=== PATIENT | male | born 2005 | race Caucasian/White ===

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

== ENCOUNTER 2024-01-27 14:51 | Outpatient (CLI) | payer MEDICAID, SELFPAY ==
--- NOTE | 2024-01-27 13:30 | DI.RAD_ITS ---
Exam(s) XR ANKLE RT COMPLETE EXAM: XR ANKLE RT COMPLETE CLINICAL HISTORY: F/U FRACTURE. TECHNIQUE: 2D digital imaging was performed. COMPARISON: CR XR ANKLE RT COMPLETE from 12/30/2023 FINDINGS: 3 views The oblique and transverse fracture lines in the distal fibula are still evident. No further displac ement. No widening of the ankle mortise evident on these nonstress views. No additional fractures e vident. Talar dome unremarkable. Base of the 5th metatarsal unremarkable. IMPRESSION: Stable appearance of fracture lines in the distal fibula. No obvious callus formation. No further d isplacement. DATA REPOSITORY: RADIATION DOSE DELIVERED:
== END 2024-01-27 14:52 | disposition home or self-care (01) ==
LOC: DIORS 14:51
PROVIDERS: PCP Pediatrics; Visit Provider Student in an Organized Health Care Education/Training Program
DX: S82.891A Other fracture of right lower leg, initial encounter for closed fracture (principal)
CPT/HCPCS: 73610

== ENCOUNTER 2024-02-10 14:43 | Emergency (ER) | payer MEDICAID, SELFPAY ==
[2024-02-10] VITALS (11 sets, daily range): BP systolic 120–126; BP diastolic 58–59; PULSE 50–62; RESP 7–28; TEMP 36.3–37; O2SAT 97–100
--- NOTE | 2024-02-10 15:00 | DI.CT_ITS ---
Exam(s) CT ABDOMEN PELVIS W EXAM: CT ABDOMEN PELVIS W CLINICAL HISTORY: LLQ pain, Left inguinal hernia repair October. TECHNIQUE: Imaging Protocol: Axial computed tomography images with coronal and sagittal reformatted images were created and reviewed CONTRAST MATERIAL: Intravenous: Omnipaque 350 Contrast volume:100 ml Oral: no COMPARISON: No exams were available for comparison FINDINGS: ABDOMEN and PELVIS: Lung Bases: No acute findings. Liver: Normal density. No suspicious mass. Gallbladder and biliary tract: No radiodense calculus. No biliary dilation. Pancreas: Normal density. No abnormal calcifications or inflammatory process. No evidence of mass. Spleen: Normal. Kidneys: Normal size, contour and axis. No radiodense stones. No obstructive uropathy. No suspicious masses seen. Adrenal glands: No masses seen. Vasculature: Abdominal aorta non-dilated. Soft tissues: Mild stranding in the subcutaneous fat of the left inguinal region likely related to re cent surgery. No evidence of recurrence hernia. Bladder: Distended. No gross wall thickening. No calculi.No focal mass. Bowel: No obstruction. No bowel wall thickening. Appendix normal. Peritoneal cavity: No ascites. No focal collection. No mesenteric inflammatory response. Bones: Unremarkable for age. Reproductive organs: Unremarkable. Lymph nodes: No pathologically enlarged lymph nodes. IMPRESSION:: No acute abnormality in the abdomen or pelvis. No evidence of recurrence inguinal hernia. RADIATION DOSE DELIVERED: Total DLP DATA REPOSITORY: All CT scans at this facility are submitted to the National Radiology Data Registry (NRDR) Dose Index Registry (DIR) with the [employer] [place] [employer] (ACR). RADIATION OPTIMIZATION: All CT scans at this facility use at least one of these dose optimization te chniques: automated exposure control; mA and/or kV adjustment per patient size (includes targeted exa ms where dose is matched to clinical indication); or iterative reconstruction.
--- NOTE | 2024-02-10 15:10 | ED.GENADUL_ITS ---
Discharge Plan Discharge Details Chief Complaint: Male Reproductive Problem Primary Care Provider: Rosalio Pool ED Provider: Clari De Guzman Home Meds and New Rx's Prescriptions: No Action melatonin 3 mg tablet 3 mg PO HS PRN (Reason: sleep) Qty: 30 2RF fluoxetine 10 mg capsule 10 mg PO DAILY Qty: 30 2RF lisdexamfetamine [Vyvanse] 30 mg capsule 30 mg PO DAILY HPI General Mode of arrival: ambulatory . Date/Time Provider Initiated Documentation: 02/10/24 14:49 . Limitations to Documentation: no limitations . Information obtained by: patient, RN notes reviewed and old records reviewed . HPI Narrative: 18-year-old male presents to the ER with a chief complaint of left lower quadrant abdominal and groin pain after lifting a countertop approximately 4 hours prior to arrival. He reports that he felt a sharp pain in his had some tenderness since then. He did have a left inguinal hernia repair with mesh placement in October of this year. He denies any problems urinating after the injury denies any fever chills nausea vomiting or diarrhea. He did not take any medications prior to arrival. He does have a healed surgical incision noted, no significant masses palpated or visualized. Other past medical history includes ADHD and depression. Related Data Home Medications ?Medication ?Instructions ?Recorded ?Confirmed melatonin 3 mg tablet 3 mg PO HS PRN sleep #30 tabs 01/04/21 02/10/24 fluoxetine 10 mg capsule 10 mg PO DAILY #30 caps 02/05/23 02/10/24 lisdexamfetamine 30 mg capsule 30 mg PO DAILY 08/19/23 02/10/24 (Vyvanse) Previous Rx's ?Medication ?Instructions ?Recorded melatonin 3 mg tablet 3 mg PO HS PRN sleep #30 tabs 01/04/21 fluoxetine 10 mg capsule 10 mg PO DAILY #30 caps 02/05/23 Allergies Allergy/AdvReac Type Severity Reaction Status Date / Time kiwi Allergy Mild Tongue Verified 02/10/24 14:56 Tingling General Stated Complaint: Male Reproductive Problem NAHUM: 3 Review of Systems All systems reviewed & are unremarkable except as noted in HPI and below Gastrointestinal Gastrointestinal: Reports as per HPI and Reports abdominal pain Genitourinary Genitourinary: Reports as per HPI, Denies penile discharge and Denies scrotal swelling Exam Narrative Exam Narrative: Constitutional: Alert and oriented x3. Appears stated age. Normal body habitus. Head: Normocephalic, no trauma. Eyes: Pupils PERRL, Red reflex noted, EOM's intact. Eyelids symmetrical without lesions, discharge, or swelling. Chest: RRR, Normal S1, S2, distal pulses intact. Resp: Lungs clear to auscultation bilaterally, no wheezes, rales, or rhonchi. Abdomen: Soft, non-distended, Normoactive bowel sounds all 4 quads. Healed horizontal surgical incision noted to the left groin, no visualized masses, no obvious large hernias palpated. Musculoskeletal: Normal gait, Moves all 4 extremities without difficulty. Skin: No suspicious rashes or lesions. Capillary refill less than 2 sec. Neurologic: Cranial nerves II-XII intact. Alert and oriented x 3. Motor: No deficits noted. Sensory: Intact bilaterally all 4 extremities. Hematologic/Lymphatic: No ecchymosis, no lymphadenopathy. Course Vital Signs Vital signs: Vital Signs Temperature 37.0 C 02/10/24 14:53 Pulse 51 L 02/10/24 14:53 Respiratory Rate 16 02/10/24 14:53 Blood Pressure 126/58 L 02/10/24 14:53 Pulse Oximetry 99 02/10/24 14:53 Temperature 37.0 C 02/10/24 14:53 Temperature Source Temporal Artery Scan 02/10/24 14:53 Pulse 51 L 02/10/24 14:53 Respiratory Rate 16 02/10/24 14:53 Blood Pressure 126/58 L 02/10/24 14:53 Pulse Oximetry 99 02/10/24 14:53 Pain Level 2 02/10/24 14:53 Medical Decision Making 18-year-old male presents to the ER with a chief complaint of left lower quadrant abdominal and groin pain after lifting a countertop approximately 4 hours prior to arrival. He reports that he felt a sharp pain in his had some tenderness since then. He did have a left inguinal hernia repair with mesh placement in October of this year. He denies any problems urinating after the injury denies any fever chills nausea vomiting or diarrhea. He did not take any medications prior to arrival. He does have a healed surgical incision noted, no significant masses palpated or visualized. Other past medical history includes ADHD and depression. CT abdomen pelvis with contrast ordered, CBC CMP urinalysis. Care is to be handed off to oncoming provider pending CT abdomen pelvis and labs. This text was generated using [employer] dictation system, please disregard any oddities of phrase or misspellings. Medical Records Medical records reviewed: Yes I reviewed the patient's medical records. Quality:[facility] Health Related Social Needs: No Data to Display PFSH All Active Problems Closed right ankle fracture (Acute 12/20/23) Left inguinal hernia (Acute) Non-recurrent unilateral inguinal hernia without obstruction or gangrene (Acute) Precordial catch syndrome (Acute) Depression with anxiety (Acute) Routine child health exam (Acute 11/20/12) Learning difficulty (Acute 11/20/12) Attention deficit hyperactivity disorder, combined type (Acute 11/20/12) Medical History Depression Normal weight, pediatric, BMI 5th to 84th percentile for age (12/28/14) ADHD (attention deficit hyperactivity disorder) Vision problem WEARS GLASSES Surgical History Hx of inguinal hernia repair (~10/2023) left side Circumcision Family History Mother TMJ arthralgia Lumbar herniated disc Father Healthy adult on routine physical examination Grandfather Essential hypertension Hyperlipidemia Social History Smoking/Tobacco Use Status: Current every day Tobacco Type: cigarettes and e-cigarettes Smoking risk assessment performed?: Yes Alcohol Intake: never Drug use: Daily Substance use type: marijuana Housing: apartment Education Level: high school Details: Senior at Pets and animals: Yes (Dog at dad's house) Pets and animals: dog(s) Current gender identity: male What type of physical activity do you participate in: other Details: Baseball Seatbelt use: always Do you feel safe at home: Yes Do you feel safe in your relationship?: Yes Sign Out Sign Out Data: Sign Out Comment: 18 year old Left Inguinal groin pain after heavy lifting today. Hx of Inguinal hernia repair with Mesh in October 2023. Pending CT abd/pelvis w. Last updated by Clari De Guzman NP at 02/10/24 15:40
[2024-02-10 15:31] LABS: Abs Immature Grans 0.02 10^3/uL (0.0-0.06); Absolute Basophil Count 0.02 10^3/uL (0.0-0.2); Absolute Eosinophil Count 0.05 10^3/uL (0.0-0.7); Absolute Lymphocyte Count 1.59 10^3/uL (1.2-3.4); Absolute Monocyte Count 0.63 10^3/uL (0.1-0.8); Absolute Neutrophil Count 4.04 10^3/uL (1.2-6.7); Basophils % 0.3 %; Eosinophils % 0.8 %; HCT 39.3 % (40.0-50.0); HGB 13.7 g/dL (13.5-17.5); Immature Grans % 0.3 %; MCH 31.3 pg (27.0-33.0); MCHC 34.9 % (32.0-36.0); MCV 90 fL (80-95); Monocytes % 9.9 %; Neutrophils % 63.7 %; RBC 4.38 10^6/uL (4.36-5.78); RDW-SD 39.5 fL; WBC 6.35 10^3/uL (4.4-10.8)
[2024-02-10 15:51] LABS: Platelet Count 150 10^3/uL (130-400)
[2024-02-10 15:54] LABS: ALT 26 U/L (16-63); AST 20 U/L (15-37); Albumin 4.5 g/dL (3.4-5.0); Alkaline Phosphatase 94 U/L (46-116); Anion Gap 4.7 mmol/L (3-11); BUN 9 mg/dL (7-18); Bilirubin, Total 1.59 mg/dL (0.2-1.0); CO2 33.3 mmol/L (21.0-32.0); CREATININE 0.8 mg/dL (0.70-1.30); Calcium 8.9 mg/dL (8.5-10.1); Chloride 102 mmol/L (98-107); Estimated GFR 130.74 (mL/min/1.73m2); Glucose 87 mg/dL (74-106); Potassium 3.6 mmol/L (3.5-5.1); Sodium 140 mmol/L (136-145); Total Protein 7.3 g/dL (6.4-8.2)
[2024-02-10] MEDS: Normal Saline - Diluent 50 ML VIAL IJ (15:55)
[2024-02-10] MEDS: Omnipaque 350 MG/ML 100 ML BTL IJ (15:57)
[2024-02-10 16:07] LABS: Bilirubin Negative (Negative); Blood Negative (Negative); Clarity Clear (Clear); Glucose Negative (Negative); Ketones Negative (Negative); Leukocyte Esterase Negative (Negative); Nitrite Negative (Negative); Specific Gravity 1.015 (1.005-1.025); Urobilinogen 0.2 mg/dL (Up to 0.2); pH 7.5 (5-8)
== END 2024-02-10 16:52 | disposition home or self-care (01) ==
PROVIDERS: Registered Nurse Emergency; Emergency Provider Physician Assistant; PCP Pediatrics
DX: R10.32 Left lower quadrant pain (principal); G89.18 Other acute postprocedural pain; Z87.19 Personal history of other diseases of the digestive system; Z98.890 Other specified postprocedural states; X50.0XXA Overexertion from strenuous movement or load, initial encounter
CPT/HCPCS: 36415; 80053; 99285; 74177; 81003; 85025; 99282; J3490

== ENCOUNTER 2024-03-17 10:00 | Emergency (ER) | payer MEDICAID, SELFPAY ==
[2024-03-17 10:01] VITALS: BP 117/69; PULSE 56; RESP 10; TEMP 36.2; O2SAT 97
--- NOTE | 2024-03-17 10:14 | ED.GENADUL_ITS ---
Discharge Plan Disposition Patient Disposition: Home Condition: Stable Discharge Details Clinical Impression: Acute epigastric pain Primary Care Provider: Rosalio Pool ED Provider: Jordan Webster Home Meds and New Rx's Prescriptions: New omeprazole 20 mg capsule,delayed release(DR/EC) 20 mg PO BID Qty: 60 0RF Continued melatonin 3 mg tablet 3 mg PO HS PRN (Reason: sleep) Qty: 30 2RF Discharge Instructions Additional Instructions: Follow-up with your primary care provider within 1 to 2 weeks especially if symptoms continue You can take [id number] Tums or Mylanta as needed, follow dosing instructions on packaging If you feel more ill, have severe worsening pain or persistent vomiting or fevers return to the emergency department for reevaluation HPI General Mode of arrival: ambulatory . Date/Time Provider Initiated Documentation: 03/17/24 10:06 . Limitations to Documentation: no limitations . Information obtained by: patient . History of Present Illness 18 year old M presents to the emergency department with the chief complaint of Epigastric discomfort, described as moderate, Quality is described as burning, and is localized to the abdomen. Patient reports no radiation. Patient started experiencing this day(s) (3) and it has been intermittent. Eating worsens symptoms . Patient notes denies chest pain, fever/chills and shortness of breath. Patient did receive the following treatments prior to arrival, none Related Data Home Medications ?Medication ?Instructions ?Recorded ?Confirmed melatonin 3 mg tablet 3 mg PO HS PRN sleep #30 tabs 01/04/21 03/17/24 omeprazole 20 mg capsule,delayed 20 mg PO BID #60 caps 03/17/24 release Previous Rx's ?Medication ?Instructions ?Recorded melatonin 3 mg tablet 3 mg PO HS PRN sleep #30 tabs 01/04/21 omeprazole 20 mg capsule,delayed 20 mg PO BID #60 caps 03/17/24 release Allergies Allergy/AdvReac Type Severity Reaction Status Date / Time kiwi Allergy Mild Tongue Verified 03/17/24 10:04 Tingling General Stated Complaint: Abd Prob NAHUM: 3 Review of Systems All systems reviewed & are unremarkable except as noted in HPI and below Constitutional Constitutional: Denies chills, Denies fever(s) and Denies weakness Cardiovascular Cardiovascular: Denies chest pain and Denies dyspnea Respiratory Respiratory: Denies cough and Denies dyspnea Gastrointestinal Gastrointestinal: Reports abdominal pain, Reports nausea and Denies vomiting Musculoskeletal Musculoskeletal: Denies joint swelling Neurologic Neurologic: Denies weakness Exam Const General: no acute distress Orientation: alert HENUT Head: normal to inspection Ears: external ears normal General nose exam: external nose normal Mouth: moist mucous membranes Eyes General: appearance normal, both eyes and all related structures Neck Neck: normal visual inspection Resp Effort & Inspection: normal respiratory effort and able to speak in complete sentences Cardio Rate: regular rate GI Palpation: soft, not firm, no guarding and tender Skin General skin exam: no rashes or lesions noted Neuro General: patient alert and patient oriented x3 Extrem General: normal to inspection Psych Mental Status: mental status grossly normal Course Vital Signs Vital signs: Vital Signs Temperature 36.2 C L 03/17/24 10:01 Pulse 56 L 03/17/24 10:01 Respiratory Rate 10 L 03/17/24 10:01 Blood Pressure 117/69 03/17/24 10:01 Pulse Oximetry 97 03/17/24 10:01 Temperature 36.2 C L 03/17/24 10:01 Pulse 56 L 03/17/24 10:01 Respiratory Rate 10 L 03/17/24 10:01 Respiratory Effort Normal 03/17/24 10:05 Blood Pressure 117/69 03/17/24 10:01 Pulse Oximetry 97 03/17/24 10:01 Oxygen Delivery Method Room Air 03/17/24 10:01 Oxygen Flow Rate 0 03/17/24 10:01 Pain Level 5 03/17/24 10:01 Comment 7/10 at its worse when he eats and wakes up 03/17/24 10:01 Medical Decision Making 89-year-old male with history of ADHD otherwise no significant chronic medical problems comes in with several days of epigastric burning sensation especially when he eats. He denies any vomiting but has had nausea. He had similar symptoms a month ago and was seen here and had negative CT. He appears well on exam. His abdomen is soft and nondistended. His pain is localized to epigastric area has no right upper quadrant tenderness or lower abdominal tenderness. He has no Nation sign. Suspect gastritis, will check a CBC CMP lipase and bilirubin and also treat his symptoms with Mylanta and Zofran and reassess. Given he had a CT a month ago do not feel he requires emergent imaging at this time. Labs show elevated bilirubin which she has had in the past and I suspect is from [place] syndrome. Otherwise unremarkable labs. He is feeling improved has minimal epigastric tenderness. He has no findings on history or exam to suggest entities such as cholangitis. Given lack of right upper quadrant abdominal tenderness and LFTs otherwise are normal do not feel ultrasound or imaging with CT indicated. Will have him start a daily PPI and have him follow-up with his PCP and return precautions given Differential Diagnosis Differential Diagnosis: gastritis, pancreatitis Medical Records Medical records reviewed: Yes I reviewed the patient's medical records. Lab Data Lab results reviewed: Yes I reviewed the patient's lab results. Quality:[facility] Health Related Social Needs: No Data to Display PFSH All Active Problems (Updated 03/17/24 @ 11:22 by Jordan Webster MD) Acute epigastric pain (Acute) Closed right ankle fracture (Acute 12/20/23) Left inguinal hernia (Acute) Non-recurrent unilateral inguinal hernia without obstruction or gangrene (Acute) Precordial catch syndrome (Acute) Depression with anxiety (Acute) Routine child health exam (Acute 11/20/12) Learning difficulty (Acute 11/20/12) Attention deficit hyperactivity disorder, combined type (Acute 11/20/12) Medical History Depression Normal weight, pediatric, BMI 5th to 84th percentile for age (12/28/14) ADHD (attention deficit hyperactivity disorder) Vision problem WEARS GLASSES Surgical History Hx of inguinal hernia repair (~10/2023) left side Circumcision Family History Mother TMJ arthralgia Lumbar herniated disc Father Healthy adult on routine physical examination Grandfather Essential hypertension Hyperlipidemia Social History Smoking/Tobacco Use Status: Current every day Tobacco Type: cigarettes and e- cigarettes Smoking risk assessment performed?: Yes Alcohol Intake: never Drug use: Daily Substance use type: marijuana Housing: apartment Education Level: high school Details: Senior at Pets and animals: Yes (Dog at dad's house) Pets and animals: dog(s) Current gender identity: male What type of physical activity do you participate in: other Details: Baseball Seatbelt use: always Do you feel safe at home: Yes Do you feel safe in your relationship?: Yes
[2024-03-17] MEDS: Mylanta Suspension 30 ML CUP PO (10:27)
[2024-03-17] MEDS: Ondansetron O.D.T. 4 MG TABEF PO (10:27)
[2024-03-17 10:34] LABS: Abs Immature Grans 0.01 10^3/uL (0.0-0.06); Absolute Basophil Count 0.02 10^3/uL (0.0-0.2); Absolute Eosinophil Count 0.05 10^3/uL (0.0-0.7); Absolute Lymphocyte Count 1.49 10^3/uL (1.2-3.4); Absolute Monocyte Count 0.47 10^3/uL (0.1-0.8); Absolute Neutrophil Count 2.67 10^3/uL (1.2-6.7); Basophils % 0.4 %; Eosinophils % 1.1 %; HCT 43.7 % (40.0-50.0); HGB 14.9 g/dL (13.5-17.5); Immature Grans % 0.2 %; Lymphocytes % 31.6 %; MCH 30.7 pg (27.0-33.0); MCHC 34.1 % (32.0-36.0); MCV 90 fL (80-95); MPV 13.8 fL (8.0-11.0); Neutrophils % 56.7 %; Platelet Count 151 10^3/uL (130-400); RBC 4.85 10^6/uL (4.36-5.78); RDW 12.1 % (11.8-14.1); WBC 4.71 10^3/uL (4.4-10.8)
[2024-03-17 10:52] LABS: ALT 40 U/L (16-63); AST 32 U/L (15-37); Alkaline Phosphatase 95 U/L (46-116); BUN 15 mg/dL (7-18); Bilirubin, Direct 0.4 mg/dL (0.0-0.2); Bilirubin, Total 2.93 mg/dL (0.2-1.0); CREATININE 0.9 mg/dL (0.70-1.30); Calcium 9.8 mg/dL (8.5-10.1); Chloride 100 mmol/L (98-107); Estimated GFR 126.17 (mL/min/1.73m2); Glucose 76 mg/dL (74-106); Lipase 30 U/L (16-77); Magnesium 2.1 mg/dL (1.8-2.4); Potassium 3.6 mmol/L (3.5-5.1); Sodium 138 mmol/L (136-145); Total Protein 8.1 g/dL (6.4-8.2)
[2024-03-17 11:14] VITALS: BP 109/56; PULSE 51; RESP 16; O2SAT 97
== END 2024-03-17 11:31 | disposition home or self-care (01) ==
PROVIDERS: Emergency Provider Emergency Medicine; PCP Pediatrics
DX: R10.13 Epigastric pain (principal); R11.2 Nausea with vomiting, unspecified; F17.210 Nicotine dependence, cigarettes, uncomplicated; F17.290 Nicotine dependence, other tobacco product, uncomplicated
CPT/HCPCS: 36415; 80053; 83690; 99283; 82248; 83735; 85025

== ENCOUNTER 2024-06-25 17:20 | Emergency (ER) | payer MEDICAID, SELFPAY ==
[2024-06-25 17:21] VITALS: BP 109/78; PULSE 90; RESP 14; TEMP 36.6; O2SAT 97
--- NOTE | 2024-06-25 17:37 | ED.GENADUL_ITS ---
Discharge Plan Disposition Patient Disposition: Home Condition: Stable Discharge Details Clinical Impression: Gastritis Primary Care Provider: Rosalio Pool ED Provider: Clari De Guzman Home Meds and New Rx's Prescriptions: New Ondansetron Odt, 3 Tabs/Btl [Zofran Odt, 3 Tabs/Btl] 4 mg PO DISPENSE PRN3 Days 0RF Continued melatonin 3 mg tablet 3 mg PO HS PRN (Reason: sleep) Qty: 30 2RF omeprazole 20 mg capsule,delayed release(DR/EC) 20 mg PO BID Qty: 60 0RF Discharge Instructions Instructions: Food poisoning Additional Instructions: At this time your labs are within normal limits. Take the nausea medication 20 to 30 minutes before eating or drinking anything. Increase oral fluids. Stay away from anything fried fatty spicy or dairy. Drink katie rui and a bland diet. Follow up with primary care provider in 3-5 days. Return to ED sooner if any worsening or concerns. Referrals: Rosalio Pool MD [Primary Care Provider] - 5 days Discharge Data Discharge Date/Time-TO BE ENTERED AT DEPARTURE: 06/25/24 18:33 HPI General Mode of arrival: ambulatory . Date/Time Provider Initiated Documentation: 06/25/24 17:22 . Limitations to Documentation: no limitations . Information obtained by: patient, RN notes reviewed and old records reviewed . HPI Narrative: 19 year old male presents to the ER with cc of LLQ abdominal pain and nausea after eating half a bag of moldy, bad jerky yesterday. He reports he has not had a bowel movement since then, denies any vomiting or diarrhea but he is nauseous. Denies any fever or chills or any other associated symptoms. He describes pain as crampy and spasmodic. Related Data Home Medications ?Medication ?Instructions ?Recorded ?Confirmed melatonin 3 mg tablet 3 mg PO HS PRN sleep #30 tabs 01/04/21 06/25/24 omeprazole 20 mg capsule,delayed 20 mg PO BID #60 caps 03/17/24 06/25/24 release Ondansetron ODT, 3 tabs/btl 4 mg PO DISPENSE PRN 3 days 06/25/24 [Zofran ODT, 3 tabs/btl] Previous Rx's ?Medication ?Instructions ?Recorded melatonin 3 mg tablet 3 mg PO HS PRN sleep #30 tabs 07/01/21 omeprazole 20 mg capsule,delayed 20 mg PO BID #60 caps 03/17/24 release Ondansetron ODT, 3 tabs/btl 4 mg PO DISPENSE PRN 3 days 06/25/24 [Zofran ODT, 3 tabs/btl] Allergies Allergy/AdvReac Type Severity Reaction Status Date / Time kiwi Allergy Mild Tongue Verified 06/25/24 17:27 Tingling General Stated Complaint: Abd Prob NAHUM: 3 Review of Systems All systems reviewed & are unremarkable except as noted in HPI and below Gastrointestinal Gastrointestinal: Reports abdominal pain, Reports constipation, Reports cramping and Reports nausea Exam Narrative Exam Narrative: Constitutional: Alert and oriented x3. Appears stated age. Normal body habitus. Head: Normocephalic, no trauma. Eyes: Pupils PERRL, Red reflex noted, EOM's intact. Eyelids symmetrical without lesions, discharge, or swelling. ENT: Bilateral TM's WNL, External ear normal to inspection, no mastoid TTP, swelling, or erythema, Nasal turbinates WNL, no nasal discharge. Normal d entition, Posterior pharynx WNL, no exudate. Chest: RRR, Normal S1, S2, distal pulses intact. Resp: Lungs clear to auscultation bilaterally, no wheezes, rales, or rhonchi. Abdomen: Soft, non-distended, Normoactive bowel sounds all 4 quads. Musculoskeletal: Normal gait, Moves all 4 extremities without difficulty. Skin: No suspicious rashes or lesions. Capillary refill less than 2 sec. Neurologic: Cranial nerves II-XII intact. Alert and oriented x 3. Motor: No deficits noted. Sensory: Intact bilaterally all 4 extremities. Hematologic/Lymphatic: No ecchymosis, no lymphadenopathy. Course Vital Signs Vital signs: Vital Signs Temperature 36.6 C 06/25/24 17:21 Pulse 90 06/25/24 17:21 Respiratory Rate 14 06/25/24 17:21 Blood Pressure 109/78 06/25/24 17:21 Pulse Oximetry 97 06/25/24 17:21 Temperature 36.6 C 06/25/24 17:21 Temperature Source Oral 06/25/24 17:21 Pulse 90 06/25/24 17:21 Respiratory Rate 14 06/25/24 17:21 Blood Pressure 109/78 06/25/24 17:21 Blood Pressure Position Sitting 06/25/24 17:21 Pulse Oximetry 97 06/25/24 17:21 Oxygen Delivery Method Room Air 06/25/24 17:21 Oxygen Flow Rate 0 06/25/24 17:21 Pain Level 2 06/25/24 17:21 Medical Decision Making 19 year old male presents to the ER with cc of LLQ abdominal pain and nausea after eating half a bag of moldy, bad jerky yesterday. He reports he has not had a bowel movement since then, denies any vomiting or diarrhea but he is nauseous. Denies any fever or chills or any other associated symptoms. He describes pain as crampy and spasmodic. Workup ordered including CBC CMP, lipase, Zofran ODT p.o., Pepcid 20 mg IV and Mylanta. Labs are largely unremarkable, will send home with Felipe to go and instruct on bland diet and increasing oral fluids. This text was generated using [employer] dictation system, please disregard any oddities of phrase or misspellings. Lab Data Lab results reviewed: Yes I reviewed the patient's lab results. Labs: Laboratory Tests Range/Units 06/25/24 17:44 WBC (4.4-10.8) 10^3/uL 6.76 RBC (4.36-5.78) 10^6/uL 5.03 Hgb (13.5-17.5) g/dL 15.7 Hct (40.0-50.0) % 45.2 MCV (80-95) fL 90 MCH (27.0-33.0) pg 31.2 MCHC (32.0-36.0) % 34.7 RDW (11.8-14.1) % 12.2 Plt Count (130-400) 10^3/uL 147 MPV (8.0-11.0) fL 11.3 H Immature Gran % % 0.3 Neutrophils % % 66.5 Lymphocytes % % 25.4 Monocytes % % 7.1 Eosinophils % % 0.4 Basophils % % 0.3 Nucleated RBC % (0.0-0.3) % 0.0 Absolute Neutrophils (1.2-6.7) 10^3/uL 4.49 Absolute Lymphocytes (1.2-3.4) 10^3/uL 1.72 Absolute Monocytes (0.1-0.8) 10^3/uL 0.48 Absolute Eosinophils (0.0-0.7) 10^3/uL 0.03 Absolute Basophils (0.0-0.2) 10^3/uL 0.02 Sodium (136-145) mmol/L 140 Potassium (3.5-5.1) mmol/L 3.9 Chloride (98-107) mmol/L 102 Carbon Dioxide (21.0-32.0) mmol/L 30.0 Anion Gap (3-11) mmol/L 8.0 BUN (7-18) mg/dL 17 Creatinine (0.70-1.30) mg/dL 1.1 Est GFR (CKD-EPI 2020) (mL/min/1.73m2) 98.56 Glucose (74-106) mg/dL 85 Calcium (8.5-10.1) mg/dL 9.1 Total Bilirubin (0.2-1.0) mg/dL 3.50 H AST (15-37) U/L 18 ALT (16-63) U/L 20 Alkaline Phosphatase (46-116) U/L 108 Total Protein (6.4-8.2) g/dL 8.1 Albumin (3.4-5.0) g/dL 5.0 Lipase (<78) U/L 20 Quality:SDOH Health Related Social Needs: No Data to Display PFSH All Active Problems (Updated 06/25/24 @ 18:17 by Clari De Guzman NP) Gastritis (Acute) Closed right ankle fracture (Acute 12/20/23) Left inguinal hernia (Acute) Non-recurrent unilateral inguinal hernia without obstruction or gangrene (Acute) Precordial catch syndrome (Acute) Depression with anxiety (Acute) Routine child health exam (Acute 11/20/12) Learning difficulty (Acute 11/20/12) Attention deficit hyperactivity disorder, combined type (Acute 11/20/12) Medical History Depression Normal weight, pediatric, BMI 5th to 84th percentile for age (12/28/14) ADHD (attention deficit hyperactivity disorder) Vision problem WEARS GLASSES Surgical History Hx of inguinal hernia repair (~10/2023) left side Circumcision Family History Mother TMJ arthralgia Lumbar herniated disc Father Healthy adult on routine physical examination Grandfather Essential hypertension Hyperlipidemia Social History Smoking/Tobacco Use Status: Current every day Tobacco Type: cigarettes and e- cigarettes Smoking risk assessment performed?: Yes Alcohol Intake: never Drug use: Daily Substance use type: marijuana Housing: apartment Education Level: high school Details: Senior at Pets and animals: Yes (Dog at dad's house) Pets and animals: dog(s) Current gender identity: male What type of physical activity do you participate in: other Details: Baseball Seatbelt use: always Do you feel safe at home: Yes Do you feel safe in your relationship?: Yes
[2024-06-25 17:51] LABS: Abs Immature Grans 0.02 10^3/uL (0.0-0.06); Absolute Basophil Count 0.02 10^3/uL (0.0-0.2); Absolute Eosinophil Count 0.03 10^3/uL (0.0-0.7); Absolute Lymphocyte Count 1.72 10^3/uL (1.2-3.4); Absolute Monocyte Count 0.48 10^3/uL (0.1-0.8); Absolute Neutrophil Count 4.49 10^3/uL (1.2-6.7); Basophils % 0.3 %; Eosinophils % 0.4 %; HCT 45.2 % (40.0-50.0); HGB 15.7 g/dL (13.5-17.5); Immature Grans % 0.3 %; Lymphocytes % 25.4 %; MCH 31.2 pg (27.0-33.0); MCHC 34.7 % (32.0-36.0); MCV 90 fL (80-95); MPV 11.3 fL (8.0-11.0); Monocytes % 7.1 %; Neutrophils % 66.5 %; Platelet Count 147 10^3/uL (130-400); RBC 5.03 10^6/uL (4.36-5.78); RDW 12.2 % (11.8-14.1); RDW-SD 40.2 fL; WBC 6.76 10^3/uL (4.4-10.8)
[2024-06-25] MEDS: Ondansetron O.D.T. 4 MG TABEF PO (17:54)
[2024-06-25] MEDS: FAMOTIDINE 20 MG in Normal Saline 100 ML 400 MG IVPB (17:54)
[2024-06-25] MEDS: Mylanta Suspension 30 ML CUP 20 ML PO (17:54)
[2024-06-25 18:05] LABS: ALT 20 U/L (16-63); AST 18 U/L (15-37); Alkaline Phosphatase 108 U/L (46-116); BUN 17 mg/dL (7-18); CREATININE 1.1 mg/dL (0.70-1.30); Calcium 9.1 mg/dL (8.5-10.1); Chloride 102 mmol/L (98-107); Estimated GFR 98.56 (mL/min/1.73m2); Glucose 85 mg/dL (74-106); Lipase 20 U/L (<78); Potassium 3.9 mmol/L (3.5-5.1); Sodium 140 mmol/L (136-145); Total Protein 8.1 g/dL (6.4-8.2)
[2024-06-25] MEDS: Ondansetron O.D.T. 4 MG TABEF, 3 TABS/BTL PO (18:28)
[2024-06-25 18:32] VITALS: BP 103/49; PULSE 82; RESP 18; O2SAT 99
== END 2024-06-25 18:33 | disposition home or self-care (01) ==
PROVIDERS: Emergency Provider Registered Nurse Emergency; PCP Pediatrics
DX: K29.70 Gastritis, unspecified, without bleeding
CPT/HCPCS: 80053; 83690; 96374; 99284; 85025

== ENCOUNTER 2024-07-30 11:55 | Emergency (ER) | payer MEDICAID, SELFPAY ==
[2024-07-30 12:06] VITALS: BP 113/50; PULSE 60; RESP 20; TEMP 36.6
--- NOTE | 2024-07-30 12:30 | DI.CT_ITS ---
Exam(s) CT PELVIC W EXAM: CT PELVIC W CLINICAL HISTORY: Left inguinal hernia pain. TECHNIQUE: Imaging Protocol: Axial computed tomography images with coronal and sagittal reformatted images were created and reviewed CONTRAST MATERIAL: Intravenous: Omnipaque 100cc Oral: None COMPARISON: No exams were available for comparison FINDINGS: PELVIS: OSSEOUS:No pelvic or hip fractures evident. No significant osseous lesions.Sacroiliac joints appear unremarkable. ANTERIOR ABDOMINAL WALL/GI:No evidence of bowel obstruction. No evidence of appendicitis.No evidence of sigmoid diverticulitis. LYMPH NODES: There is no intrapelvic nor inguinal adenopathy. REPRODUCTIVE: Prostate unremarkable. URINARY BLADDER: No calculi nor obvious masses evident INGUINAL: No inguinal hernias identified. IMPRESSION: 1. No inguinal hernia identified. No abnormal fluid collections. 2. No significant intrapelvic findings. 3. No significant osseous findings in the pelvis RADIATION DOSE DELIVERED: 196.37mGy.cm Total DLP DATA REPOSITORY: All CT scans at this facility are submitted to the National Radiology Data Registry (NRDR) Dose Index Registry (DIR) with the [employer] (ACR). RADIATION OPTIMIZATION: All CT scans at this facility use at least one of these dose optimization te chniques: automated exposure control; mA and/or kV adjustment per patient size (includes targeted exa ms where dose is matched to clinical indication); or iterative reconstruction.
--- NOTE | 2024-07-30 12:35 | W.ED.GENAD ---
Discharge Plan Disposition Patient Disposition: Home Condition: Stable Discharge Details Clinical Impression: Chronic pain of left groin Primary Care Provider: Rosalio Pool ED Provider: Clari De Guzman Home Meds and New Rx's Prescriptions: No Action melatonin 3 mg tablet 3 mg PO HS PRN (Reason: sleep) Qty: 30 2RF Discharge Instructions Instructions: Groin hernias, Abdominal Pain, Adult ED Additional Instructions: Please wear a brace or tight fitting underwear with heavy lifting. You may try to guard the area with lifting. CT at this time is within normal limits. No evidence of infection or fluid collection labs are also within normal limits. Follow up with primary care provider in 3-5 days. Return to ED sooner if any worsening or concerns. Please take Tylenol or Ibuprofen with food every 4-6 hours as needed for pain and swelling. Please call the general surgery clinic to make an appointment in their office for follow-up. Stand Alone Forms: Work Release Referrals: Melina Disla DO [OSTEOPATHIC DOCTOR] - 2 weeks HPI General Mode of arrival: ambulatory. Date/Time Provider Initiated Documentation: 07/30/24 12:17. Limitations to Documentation: no limitations. Information obtained by: patient, RN notes reviewed and old records reviewed. HPI Narrative: 19-year-old male presents to the ER with a chief complaint of left groin swelling and pain. Patient is status post left inguinal hernia repair approximately 9 months ago in October 2023. 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 Denies any scrotal swelling, problems urinating nausea vomiting diarrhea. He reports some radiation of lower abdominal pain intermittently. Abdomen is soft nontender to palpation. He does have some swelling noted in the left groin and a healed surgical incision. Past medical history includes ADHD and hernia repair. Related Data Home Medications ?Medication ?Instructions ?Recorded ?Confirmed melatonin 3 mg tablet 3 mg PO HS PRN sleep #30 tabs 01/04/21 07/30/24 Previous Rx's ?Medication ?Instructions ?Recorded melatonin 3 mg tablet 3 mg PO HS PRN sleep #30 tabs 01/04/21 Allergies Allergy/AdvReac Type Severity Reaction Status Date / Time kiwi Allergy Mild Tongue Verified 07/30/24 12:08 Tingling General Stated Complaint: Abd Prob NAHUM: 3 Review of Systems All systems reviewed & are unremarkable except as noted in HPI and below Gastrointestinal Gastrointestinal: Reports as per HPI, Reports abdominal pain, Denies diarrhea, Denies nausea and Denies vomiting Genitourinary Genitourinary: Reports as per HPI, Reports genital pain, Reports flank pain and Denies testicular pain Musculoskeletal Musculoskeletal: Reports as per HPI Exam Narrative Exam Narrative: Constitutional: Alert and oriented x3. Appears stated age. Normal body habitus. Head: Normocephalic, no trauma. Eyes: Pupils PERRL, Red reflex noted, EOM's intact. Eyelids symmetrical without lesions, discharge, or swelling. Chest: RRR, Normal S1, S2, distal pulses intact. Resp: Lungs clear to auscultation bilaterally, no wheezes, rales, or rhonchi. Abdomen: Soft, non-distended, Normoactive bowel sounds all 4 quads. Small amount of swelling noted to the left groin, tenderness to palpation, no masses palpated healing surgical incision noted. No testicle swelling redness scrotum is soft. Musculoskeletal: Normal gait, Moves all 4 extremities without difficulty. Skin: No suspicious rashes or lesions. Capillary refill less than 2 sec. Neurologic: Cranial nerves II-XII intact. Alert and oriented x 3. Motor: No deficits noted. Sensory: Intact bilaterally all 4 extremities. Hematologic/Lymphatic: No ecchymosis, no lymphadenopathy. Course Vital Signs Vital signs: Vital Signs Temperature 36.6 C 07/30/24 12:06 Pulse 60 07/30/24 12:06 Respiratory Rate 20 07/30/24 12:06 Blood Pressure 113/50 L 07/30/24 12:06 Temperature 36.6 C 07/30/24 12:06 Temperature Source Oral 07/30/24 12:06 Pulse 60 07/30/24 12:06 Respiratory Rate 20 07/30/24 12:06 Blood Pressure 113/50 L 07/30/24 12:06 Blood Pressure Position Sitting 07/30/24 12:06 Oxygen Delivery Method Room Air 07/30/24 12:06 Oxygen Flow Rate 0 07/30/24 12:06 Pain Level 3 07/30/24 12:06 Medical Decision Making 19-year-old male presents to the ER with a chief complaint of left groin swelling and pain. Patient is status post left inguinal hernia repair approximately 9 months ago in October 2023. 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 Denies any scrotal swelling, problems urinating nausea vomiting diarrhea. He reports some radiation of lower abdominal pain intermittently. Abdomen is soft nontender to palpation. He does have some swelling noted in the left groin and a healed surgical incision. Labs ordered, CT pelvis with IV contrast to evaluate hernia site. No evidence of abnormality on the CT of his pelvis. No leukocytosis, CMP within normal limits. Urinalysis is pending at this time. Expected disposition is discharge with follow-up with surgery if needed. Will discuss guarding or splinting with heavy lifting. Wearing tight fitting briefs. Discussed CT results with patient who verbalized understanding. All other questions are answered to the best my ability. Encourage follow-up with general surgery and/or PCP. This text was generated using InterStelNetation system, please disregard any oddities of phrase or misspellings. Medical Records Medical records reviewed: Yes I reviewed the patient's medical records. Imaging Data Radiologic Study: Imaging: CT Scan Radiologist's impression: CONTRAST MATERIAL: Intravenous: Omnipaque 100cc Oral: None COMPARISON: No exams were available for comparison FINDINGS: PELVIS: OSSEOUS:No pelvic or hip fractures evident. No significant osseous lesions.Sacroiliac joints appear unremarkable. ANTERIOR ABDOMINAL WALL/GI:No evidence of bowel obstruction. No evidence of appendicitis.No evidence of sigmoid diverticulitis. LYMPH NODES: There is no intrapelvic nor inguinal adenopathy. REPRODUCTIVE: Prostate unremarkable. URINARY BLADDER: No calculi nor obvious masses evident INGUINAL: No inguinal hernias identified. IMPRESSION: 1. No inguinal hernia identified. No abnormal fluid collections. 2. No significant intrapelvic findings. 3. No significant osseous findings in the pelvis Lab Data Lab results reviewed: Yes I reviewed the patient's lab results. Labs: Laboratory Tests Range/Units 07/30/24 12:50 WBC (4.4-10.8) 10^3/uL 4.58 RBC (4.36-5.78) 10^6/uL 4.69 Hgb (13.5-17.5) g/dL 14.7 Hct (40.0-50.0) % 41.9 MCV (80-95) fL 89 MCH (27.0-33.0) pg 31.3 MCHC (32.0-36.0) % 35.1 RDW (11.8-14.1) % 12.5 Plt Count (130-400) 10^3/uL 160 MPV (8.0-11.0) fL 11.5 H Immature Gran % % 0.4 Neutrophils % % 56.2 Lymphocytes % % 31.0 Monocytes % % 11.1 Eosinophils % % 1.1 Basophils % % 0.2 Nucleated RBC % (0.0-0.3) % 0.0 Absolute Neutrophils (1.2-6.7) 10^3/uL 2.57 Absolute Lymphocytes (1.2-3.4) 10^3/uL 1.42 Absolute Monocytes (0.1-0.8) 10^3/uL 0.51 Absolute Eosinophils (0.0-0.7) 10^3/uL 0.05 Absolute Basophils (0.0-0.2) 10^3/uL 0.01 Sodium (136-145) mmol/L 139 Potassium (3.5-5.1) mmol/L 4.5 Chloride (98-107) mmol/L 104 Carbon Dioxide (21.0-32.0) mmol/L 33.4 H Anion Gap (3-11) mmol/L 1.6 L BUN (7-18) mg/dL 11 Creatinine (0.70-1.30) mg/dL 0.9 Est GFR (CKD-EPI 2020) (mL/min/1.73m2) 125.39 Glucose (74-106) mg/dL 81 Calcium (8.5-10.1) mg/dL 9.1 Total Bilirubin (0.2-1.0) mg/dL 2.86 H AST (15-37) U/L 19 ALT (16-63) U/L 35 Alkaline Phosphatase (46-116) U/L 94 Total Protein (6.4-8.2) g/dL 7.4 Albumin (3.4-5.0) g/dL 4.3 Quality:SDOH Health Related Social Needs: No Data to Display PFSH All Active Problems (Updated 07/30/24 @ 14:21 by Clari De Guzman NP) Chronic pain of left groin (Acute) Closed right ankle fracture (Acute 12/20/23) Left inguinal hernia (Acute) Non-recurrent unilateral inguinal hernia without obstruction or gangrene (Acute) Precordial catch syndrome (Acute) Depression with anxiety (Acute) Routine child health exam (Acute 11/20/12) Learning difficulty (Acute 11/20/12) Attention deficit hyperactivity disorder, combined type (Acute 11/20/12) Medical History Depression Normal weight, pediatric, BMI 5th to 84th percentile for age (12/28/14) ADHD (attention deficit hyperactivity disorder) Vision problem WEARS GLASSES Surgical History Hx of inguinal hernia repair (~10/2023) left side Circumcision Family History Mother TMJ arthralgia Lumbar herniated disc Father Healthy adult on routine physical examination Grandfather Essential hypertension Hyperlipidemia Social History Smoking/Tobacco Use Status: Current every day Tobacco Type: cigarettes and e-cigarettes Smoking risk assessment performed?: Yes Alcohol Intake: never Drug use: Daily Substance use type: marijuana Housing: apartment Education Level: high school Details: Senior at Pets and animals: Yes (Dog at dad's house) Pets and animals: dog(s) Current gender identity: male What type of physical activity do you participate in: other Details: Baseball Seatbelt use: always Do you feel safe at home: Yes Do you feel safe in your relationship?: Yes
[2024-07-30 12:58] LABS: Abs Immature Grans 0.02 10^3/uL (0.0-0.06); Absolute Basophil Count 0.01 10^3/uL (0.0-0.2); Absolute Eosinophil Count 0.05 10^3/uL (0.0-0.7); Absolute Lymphocyte Count 1.42 10^3/uL (1.2-3.4); Absolute Monocyte Count 0.51 10^3/uL (0.1-0.8); Absolute Neutrophil Count 2.57 10^3/uL (1.2-6.7); Basophils % 0.2 %; Eosinophils % 1.1 %; HCT 41.9 % (40.0-50.0); HGB 14.7 g/dL (13.5-17.5); Immature Grans % 0.4 %; MCH 31.3 pg (27.0-33.0); MCHC 35.1 % (32.0-36.0); MCV 89 fL (80-95); MPV 11.5 fL (8.0-11.0); Monocytes % 11.1 %; Neutrophils % 56.2 %; Platelet Count 160 10^3/uL (130-400); RBC 4.69 10^6/uL (4.36-5.78); RDW 12.5 % (11.8-14.1); RDW-SD 40.8 fL; WBC 4.58 10^3/uL (4.4-10.8)
[2024-07-30 13:09] VITALS: BP 113/50; PULSE 60; RESP 20; TEMP 36.6; O2SAT 96
[2024-07-30 13:25] LABS: ALT 35 U/L (16-63); AST 19 U/L (15-37); Albumin 4.3 g/dL (3.4-5.0); Alkaline Phosphatase 94 U/L (46-116); Anion Gap 1.6 mmol/L (3-11); BUN 11 mg/dL (7-18); Bilirubin, Total 2.86 mg/dL (0.2-1.0); CO2 33.4 mmol/L (21.0-32.0); CREATININE 0.9 mg/dL (0.70-1.30); Calcium 9.1 mg/dL (8.5-10.1); Chloride 104 mmol/L (98-107); Estimated GFR 125.39 (mL/min/1.73m2); Glucose 81 mg/dL (74-106); Potassium 4.5 mmol/L (3.5-5.1); Sodium 139 mmol/L (136-145); Total Protein 7.4 g/dL (6.4-8.2)
[2024-07-30] MEDS: Omnipaque 350 MG/ML 100 ML BTL IJ (13:29)
[2024-07-30] MEDS: Normal Saline - Diluent 50 ML VIAL IJ (13:31)
[2024-07-30 14:09] VITALS: BP 109/60; PULSE 60; RESP 16; O2SAT 98
== END 2024-07-30 14:34 | disposition home or self-care (01) ==
PROVIDERS: Emergency Provider Registered Nurse Emergency; PCP Pediatrics
DX: R10.32 Left lower quadrant pain (principal)
CPT/HCPCS: 36415; 80053; 99285; 72193; 85025; 99284; J3490

== ENCOUNTER 2024-10-12 00:45 | Outpatient (CLI) | payer MEDICAID, SELFPAY ==
--- NOTE | 2024-10-12 | DI.CT_ITS ---
Exam(s) CT ABDOMEN PELVIS W EXAM: CT ABDOMEN PELVIS W CLINICAL HISTORY: ALTERED BOWEL FUNCTION, R19.8 SYMPT OF DIGES. SYSTEM AND ABD. TECHNIQUE: Imaging Protocol: Axial computed tomography images with coronal and sagittal reformatted images were created and reviewed CONTRAST MATERIAL: Intravenous: Omnipaque 350 Contrast volume:75 ml Oral: yes COMPARISON: CT CT ABDOMEN PELVIS W from 02/10/2024 FINDINGS: ABDOMEN and PELVIS: Lung Bases: No acute findings. Liver: Normal density. No suspicious mass. Gallbladder and biliary tract: No radiodense calculus. No wall thickening or pericholecystic fluid. No biliary dilation. Pancreas: Normal density. No abnormal calcifications or inflammatory process. No evidence of mass. Spleen: Normal. Kidneys: Normal size, contour and axis. No radiodense stones. No obstructive uropathy. No suspicious masses seen. Adrenal glands: No masses seen. Vasculature: Abdominal aorta non-dilated. Soft tissues: Unremarkable. No evidence of recurrence inguinal hernia. Bladder: No gross wall thickening. No calculi.No focal mass. Bowel: No obstruction. No bowel wall thickening. Appendix normal. Moderate quantity of stool. Peritoneal cavity: No ascites. No focal collection. No mesenteric inflammatory response. No free air . Bones: Unremarkable for age. Reproductive organs: Unremarkable. Lymph nodes: No pathologically enlarged lymph nodes. IMPRESSION:: No acute abnormality in the abdomen or pelvis. RADIATION DOSE DELIVERED: 391.28mGy.cm Total DLP DATA REPOSITORY: All CT scans at this facility are submitted to the National Radiology Data Registry (NRDR) Dose Index Registry (DIR) with the [employer] (ACR). RADIATION OPTIMIZATION: All CT scans at this facility use at least one of these dose optimization te chniques: automated exposure control; mA and/or kV adjustment per patient size (includes targeted exa ms where dose is matched to clinical indication); or iterative reconstruction.
[2024-10-12] MEDS: Barium Sulfate 2% W/V-Berry Smoothie 450 ML BTL PO ×2 (12:54→12:55)
[2024-10-12] MEDS: Omnipaque 350 MG/ML 100 ML BTL 75 ML IJ (15:12)
[2024-10-12] MEDS: Normal Saline - Diluent 50 ML VIAL IJ (15:13)
== END 2024-10-12 01:05 ==
LOC: DI 00:46
PROVIDERS: PCP Pediatrics; Visit Provider Nurse Practitioner Family
DX: R91.8 Other nonspecific abnormal finding of lung field (principal)
CPT/HCPCS: 74177; J3490

== ENCOUNTER 2024-10-21 00:29 | Outpatient (CLI) | payer MEDICAID, SELFPAY ==
--- NOTE | 2024-10-21 | DI.US_ITS ---
Exam(s) US SCROTUM EXAM: US SCROTUM CLINICAL HISTORY: Lt testicular pain, N50.812 TECHNIQUE: Ultrasound of the testes performed using grayscale, color, and Doppler imaging. COMPARISON: US POCUS EXAM from 11/04/[address] PELVIC W from 07/30/2024 FINDINGS: RIGHT HEMISCROTUM: The right testicle exhibits normal size and echo architecture with no evidence of intratesticular mas s. Vascular flow was demonstrated within the right testicle, including arterial waveforms. The epididymis appears unremarkable. There are no epididymal head cysts. There is no ipsilateral hydrocele nor varicocele. LEFT HEMISCROTUM: The left testicle exhibits normal size and echo architecture with no evidence of intratesticular mass . Vascular flow is demonstrated within the left testicle, including arterial waveforms. The epididymis appears unremarkable. There are no epididymal head cysts. There is mild left-sided hydrocele. No varicocele. IMPRESSION: 1. No evidence of testicular mass nor testicular torsion. 2. Small unilateral left-sided hydrocele. 3. No significant varicoceles. DATA REPOSITORY:
== END 2024-10-21 00:49 ==
LOC: DI 00:29
PROVIDERS: PCP Pediatrics; Visit Provider Nurse Practitioner Family
DX: N50.812 Left testicular pain (principal); N43.2 Other hydrocele
CPT/HCPCS: 76870

== ENCOUNTER 2025-03-14 20:27 | Emergency (ER) | payer MEDICAID, SELFPAY ==
--- NOTE | 2025-03-14 20:15 | RT.EKG_ITS ---
APPROVED REPORT Exam: Resting ECG Reason for Exam: Chest pain Patient Location: E HR:69 bpm ECG Measurements Heart Rate 69 AXIS OH 129 P 53 QRSd 93 QRS 72 QT 374 T 59 QTc 402 Conclusion Sinus rhythm...normal P axis, V-rate 60- 99 ST elev, probable normal early repol pattern...ST elevation, age<55
[2025-03-14 20:30] VITALS: BP 143/74; PULSE 62; RESP 16; TEMP 36.1; O2SAT 100
--- NOTE | 2025-03-14 20:30 | DI.RAD_ITS ---
Exam(s) XR CHEST 2V PA LATERAL EXAM: XR CHEST 2V PA LATERAL CLINICAL HISTORY: chest pain. TECHNIQUE: 2D digital imaging was performed. COMPARISON: Prior chest x-ray 11/19/2023 FINDINGS: 2 views: Heart size is normal. The mediastinum is not widened. Lungs are clear. No infiltrates nor pleural effusions. IMPRESSION: No acute pulmonary findings. DATA REPOSITORY: RADIATION DOSE DELIVERED:
--- NOTE | 2025-03-14 20:35 | W.ED.GENAD ---
Discharge Plan Disposition Patient Disposition: Home Condition: Stable Discharge Details Clinical Impression: Chest pain of uncertain etiology Primary Care Provider: Rosalio Pool ED Provider: Rosalio Fried Home Meds and New Rx's Prescriptions: Continued melatonin 3 mg tablet 3 mg PO HS PRN (Reason: sleep) Qty: 30 2RF omeprazole 40 mg capsule,delayed release(DR/EC) 40 mg PO DAILY Patient Comments: TAKE ONE CAPSULE BY MOUTH TWICE A DAY FOR 2 WEEKS, THEN REDUCE TO ONCE A DAY, TAKE ON AN EMPTY STOMACH, 30-60 MINUTES BEFORE FOOD ondansetron 4 mg tablet,disintegrating 4 mg PO BID Patient Comments: DISSOLVE ONE TABLET ON THE TONGUE TWICE A DAY Discharge Instructions Instructions: Costochondritis, Chest Pain, Adult ED Additional Instructions: You were seen in the emergency department for your pleuritic chest pain this is unlikely to be any cardiac related pain, your EKG shows no acute abnormalities or arrhythmia, it is likely musculoskeletal chest pain, there is no abnormality on your chest x-ray. Please take Tylenol and ibuprofen, apply gentle heat to the area, you can try [id number] Voltaren gel to the area couple times per day, try stretching your pec muscles, please return for any severe increase in chest pain especially with sweating, near syncope/fainting, shortness of breath. Referrals: Rosalio Pool MD [Primary Care Provider, Pediatrics Medical] Discharge Data Discharge Date/Time-TO BE ENTERED AT DEPARTURE: 03/14/25 22:03 HPI General Date/Time Provider Initiated Documentation: 03/14/25 20:35. HPI Narrative: 19 year-old male presents to ED today by POV/ambulating with a chief complaint of intermittent chest pains, with onset one hour ago, sharp and central, no radiation to shortness of breath, fever, cough, hemoptysis, nausea/vomiting, endorses doing a lot of heavy lifting at work, and hasn't eaten anything today. Severity is described as moderate. Palliating factors include nothing specific attempted. Provoking factors include nothing specific. Patient not anticoagulated. Related Data Home Medications ?Medication ?Instructions ?Recorded ?Confirmed melatonin 3 mg tablet 3 mg PO HS PRN sleep #30 tabs 01/04/21 03/14/25 omeprazole 40 mg capsule,delayed 40 mg PO DAILY 03/14/25 03/14/25 release ondansetron 4 mg disintegrating 4 mg PO BID 03/14/25 03/14/25 tablet Previous Rx's ?Medication ?Instructions ?Recorded melatonin 3 mg tablet 3 mg PO HS PRN sleep #30 tabs 01/04/21 Allergies Allergy/AdvReac Type Severity Reaction Status Date / Time alice Allergy Mild Tongue Verified 03/14/25 20:35 Tingling General Stated Complaint: Chest Pain NAHUM: 3 Review of Systems All systems reviewed & are unremarkable except as noted in HPI and below Exam Narrative Exam Narrative: GENERAL APPEARANCE: Well-nourished, non-toxic, awake and alert, atraumatic, no acute distress. SKIN: Warm, pink, dry, intact, without rashes/lesions/ulcerations. HEAD: Normocephalic, atraumatic, normal hair distribution for gender/age. EYES: Normal conjunctiva, no exudates on lids/lashes. ENT: Nares patent, no circumoral cyanosis, no facial swelling NECK: Supple, trachea midline, painless cervical ROM. LUNGS/CHEST: Lungs CTA bilaterally- no rhonchi/rales/wheezes diffusely, non-labored respirations, normal A/P diameter, symmetrical expansion, no chest wall deformity HEART (CV/PV): Regular rate and rhythm without murmur, no peripheral edema, no JVD. ABDOMEN: Soft, non-distended, no guarding, no tenderness. MSK: Normal ROM, no swelling/deformity to bilateral UEs or LEs, moving all extremities without weakness, no cyanosis, spine midline without tenderness, normal curvature. NEURO: Mental Status AAOx4 - alert to person, place, time, events No facial droop, no forehead involvement. Motor: No focal weakness - strength 5/5 in bilateral UEs and LEs, proximal and distal, symmetric. Sensory: sensation intact to light touch globally. Gait normal: patient ambulated without ataxia into ED room. PSYCH: euthymic, cooperative, pleasant, appropriate speech Course Vital Signs Vital signs: Vital Signs Temperature 36.1 C L 03/14/25 20:30 Pulse 62 03/14/25 20:30 Respiratory Rate 16 03/14/25 20:30 Blood Pressure 143/74 H 03/14/25 20:30 Pulse Oximetry 100 03/14/25 20:30 Temperature 36.1 C L 03/14/25 20:30 Temperature Source Tympanic 03/14/25 20:30 Pulse 62 03/14/25 20:30 Respiratory Rate 16 03/14/25 20:30 Blood Pressure 143/74 H 03/14/25 20:30 Blood Pressure Position Sitting 03/14/25 20:30 Pulse Oximetry 100 03/14/25 20:30 Oxygen Delivery Method Room Air 03/14/25 20:30 Oxygen Flow Rate 0 03/14/25 20:30 Pain Level 6 03/14/25 20:30 Medical Decision Making This dictation utilizes [id number] dictation software and may contain unedited grammatical errors. 19 year-old male presents to ED today by POV/ambulating with a chief complaint of intermittent chest pains, with onset one hour ago, sharp and central, no radiation to shortness of breath, fever, cough, hemoptysis, nausea/vomiting, endorses doing a lot of heavy lifting at work, and hasn't eaten anything today. Severity is described as moderate. Palliating factors include nothing specific attempted. Provoking factors include nothing specific. Patients' medical history: Precordial catch syndrome. Family and social history: Endorses marijuana use and vaping. Pertinent exam findings / vital signs include mild tenderness in the left chest, benign cardiopulmonary exam, benign abdomen, nontoxic and afebrile. Differential / pathologies of concern include costochondritis, muscle strain, less likely ACS. Diagnostic studies of: - EKG, chest x-ray. - EKG shows sinus rhythm at 69 bpm. Was followed by narrow complex QRS, normal axis, poor R wave progression, early repull pattern without any reciprocal ST depressions, no T wave abnormalities - CXR negative Interventions of: -1 g Tylenol, 3 mg IM Toradol, 10 mg cyclobenzaprine, Lidoderm patch topical. ED Course/Assessment/Plan: 19-year-old male otherwise healthy who vapes and lifts a lot of heavy weights at work presents with some left-sided chest pain worse with movement, comes and goes without any dizziness or near syncope or shortness of breath, x-ray chest is negative, EKG is benign with early repull pattern, counseled the patient on likely costochondritis he has no family history of early cardiac disease counseled on following up with his primary care provider for possible referral to cardiology has a known history of precordial catch syndrome which is often times irritation of the nerves of the chest wall. Findings not consistent with ACS, arrhythmia, pneumothorax, pulmonary abnormality. Disposition of chest pain of uncertain etiology. Patient verbalized understanding of the plan and return to ED criteria and engaged in shared decision making. Medical Records Medical records reviewed: Yes I reviewed the patient's medical records. Imaging Data Radiologic Study: Attestation: I personally reviewed and interpreted this imaging study as follows: Imaging: X-Ray Radiologist's impression: EXAM: XR CHEST 2V PA LATERAL CLINICAL HISTORY: chest pain. TECHNIQUE: 2D digital imaging was performed. COMPARISON: Prior chest x-ray 11/19/2023 FINDINGS: 2 views: Heart size is normal. The mediastinum is not widened. Lungs are clear. No infiltrates nor pleural effusions. IMPRESSION: No acute pulmonary findings. PFSH All Active Problems (Updated 03/14/25 @ 21:25 by LOCO Salguero) Chest pain of uncertain etiology (Acute) Closed right ankle fracture (Acute 12/20/23) Left inguinal hernia (Acute) Non-recurrent unilateral inguinal hernia without obstruction or gangrene (Acute) Precordial catch syndrome (Acute) Depression with anxiety (Acute) Routine child health exam (Acute 11/20/12) Learning difficulty (Acute 11/20/12) Attention deficit hyperactivity disorder, combined type (Acute 11/20/12) Medical History (Updated 03/14/25 @ 21:25 by LOOC Salguero) Swollen testicle Depression Normal weight, pediatric, BMI 5th to 84th percentile for age (12/28/14) ADHD (attention deficit hyperactivity disorder) Vision problem WEARS GLASSES Surgical History Hx of inguinal hernia repair (~10/2023) left side Circumcision Family History Mother TMJ arthralgia Lumbar herniated disc Father Healthy adult on routine physical examination Grandfather Essential hypertension Hyperlipidemia Social History Smoking/Tobacco Use Status: Current every day Tobacco Type: cigarettes and e-cigarettes Smoking risk assessment performed?: Yes Alcohol Intake: never Drug use: Daily Substance use type: marijuana Housing: apartment Education Level: high school Details: Senior at Pets and animals: Yes (Dog at dad's house) Pets and animals: dog(s) Current gender identity: male What type of physical activity do you participate in: other Details: Baseball Seatbelt use: always Do you feel safe at home: Yes Do you feel safe in your relationship?: Yes
[2025-03-14] MEDS: Lidocaine 5% Patch 1 PATCH TP (20:58)
[2025-03-14] MEDS: Acetaminophen 500 MG TAB 1000 MG PO (20:58)
[2025-03-14] MEDS: Cyclobenzaprine 10 MG TAB PO (20:58)
[2025-03-14 21:05] VITALS: RESP 16
--- NOTE | 2025-03-14 21:57 | DI.VRAD_ITS ---
PROCEDURE INFORMATION: Exam: XR Chest Exam date and time: 03/14/2025 9:06 PM Age: 19 years old Clinical indication: Chest wall pain; Additional info: Chest pain TECHNIQUE: Imaging protocol: Radiologic exam of the chest. Views: 2 views. COMPARISON: CR XR CHEST 2V PA LATERAL 11/19/2023 4:04 PM FINDINGS: Lungs: The lung eckert appear clear. Pleural spaces: No pleural effusion or pneumothorax is demonstrated. Heart/Mediastinum: The heart is normal in size. Bones/joints: The visualized bony structures appear intact. IMPRESSION: No active disease is seen in the chest. Dictated and Authenticated by: Maicol Jessica MD. Orderin Fariha Santamaria MD
[2025-03-14 22:02] VITALS: BP 118/62; PULSE 56; RESP 16; O2SAT 99
== END 2025-03-14 22:03 | disposition home or self-care (01) ==
PROVIDERS: Emergency Provider Physician Assistant; PCP Pediatrics
DX: R07.9 Chest pain, unspecified (principal)
CPT/HCPCS: 99284; 99283; 93005; 71046; 93010

== ENCOUNTER 2025-04-04 10:50 | Emergency (ER) | payer MEDICAID, SELFPAY ==
[2025-04-04 10:55] VITALS: BP 106/57; PULSE 77; RESP 18; TEMP 37; O2SAT 99
--- NOTE | 2025-04-04 11:00 | DI.RAD_ITS ---
Exam(s) XR CHEST 2V PA LATERAL EXAM: XR CHEST 2V PA LATERAL CLINICAL HISTORY: Cough shortness of breath. TECHNIQUE: 2D digital imaging was performed. COMPARISON: CR,XR XR CHEST 2V PA LATERAL from 03/14/2025 FINDINGS: 2 views: Heart size is normal. The mediastinum is not widened. Lungs are clear. No infiltrates nor pleural effusions. IMPRESSION: No acute pulmonary findings.No significant change compared to 03/14/2025. DATA REPOSITORY: RADIATION DOSE DELIVERED:
[2025-04-04 11:04] VITALS: BP 106/57; PULSE 77; RESP 18; TEMP 37; O2SAT 99
--- NOTE | 2025-04-04 11:04 | ED.GENADUL_ITS ---
Discharge Plan Disposition Patient Disposition: Home Discharge Details Clinical Impression: Viral URI Primary Care Provider: Monica Rodriguez ED Provider: Jaskaran Adkins Home Meds and New Rx's Prescriptions: New promethazine-DM 6.25-15 mg/5 mL syrup 5 ml PO Q6H PRNQty: 118 0RF cetirizine 10 mg tablet 10 mg PO DAILY PRNQty: 7 0RF benzonatate 100 mg capsule 100 mg PO BID PRNQty: 7 0RF Continued melatonin 3 mg tablet 3 mg PO HS PRN (Reason: sleep) Qty: 30 2RF omeprazole 40 mg capsule,delayed release(DR/EC) 40 mg PO DAILY Patient Comments: TAKE ONE CAPSULE BY MOUTH TWICE A DAY FOR 2 WEEKS, THEN REDUCE TO ONCE A DAY, TAKE ON AN EMPTY STOMACH, 30-60 MINUTES BEFORE FOOD ondansetron 4 mg tablet,disintegrating 4 mg PO BID Patient Comments: DISSOLVE ONE TABLET ON THE TONGUE TWICE A DAY Discharge Instructions Additional Instructions: You are seen in the emergency department for your cough. Your COVID influenza or RSV swab was negative. Your chest x-ray showed no sign of pneumonia. As we discussed if you develop worsening shortness of breath or any chest pain please return to the emergency department. Otherwise please follow-up with your primary care provider. Stand Alone Forms: Work Release Discharge Data Discharge Date/Time-TO BE ENTERED AT DEPARTURE: 04/04/25 12:33 HPI General Date/Time Provider Initiated Documentation: 04/04/25 11:04 . HPI Narrative: MDM This is an overall very well-appearing normothermic and not tachycardic 19-year-old male with URI symptoms and reassuring exam for which patient undergo chest x-ray and anticipated discharge with empiric trial of expectant outpatient management. No pain out of proportion to suggest necrotizing soft tissue infection. Uvula is midline so my suspicion is low for peritonsillar abscess. Good range of motion of neck so doubt retropharyngeal abscess. In the absence of fevers I am not suspicious for mononucleosis. Based on age and low Centor score we will defer strep testing. Will swab for COVID influenza and RSV. No abnormal lung sounds however will obtain chest x-ray to assess for pneumonia. No nuchal rigidity to suggest meningitis so no indication for lumbar puncture. Will provide patient with a work note and supportive outpatient URI medications. Patient and I discussed that he should return to the ED if he developed any increasing difficulty breathing nausea vomiting or chest pain. 04/05 Late charting due to patient care. No acute cardiopulmonary process on two-view chest. HPI The patient presents for evaluation of a cough. He has been experiencing a cough and a raspy voice for the past 5 days, which he attributes to his smoking habit. He reports an increase in coughing but has not experienced any fevers. He mentions that his girlfriend was recently diagnosed with bronchitis. He has no history of asthma or hospitalizations. He has received all his childhood vaccinations. He also reports a sore throat and an itchy rash. Exam General: Well-appearing in no acute distress speaking in complete sentences. Head: Normocephalic, atraumatic. Eye: Extraocular eye movements intact. No conjunctival injection. No scleral icterus. Ear, nose, mouth, throat: Grossly normal inspection. Normal voice, handling secretions normally. No significant posterior oropharynx erythema. Uvula midline. Neck: Trachea midline. Cardiovascular: Well-perfused distal extremities. Regular rate and rhythm. Respiratory: Nonlabored respiration. Clear lungs bilaterally. Gastrointestinal: Nondistended abdomen. Musculoskeletal: No edema. Moving all 4 extremities spontaneously. Skin: Normal for age and race, grossly normal temperature and turgor. No acute rash. Neurologic: Alert and appropriate, no apparent acute deficits. Psychiatric: Mood and manner are appropriate. Grooming and personal hygiene are appropriate. Related Data Home Medications ?Medication ?Instructions ?Recorded ?Confirmed melatonin 3 mg tablet 3 mg PO HS PRN sleep #30 tab s 01/04/21 04/04/25 omeprazole 40 mg capsule,delayed 40 mg PO DAILY 04/04/25 release ondansetron 4 mg disintegrating 4 mg PO BID 03/14/25 0 04/04/25 tablet benzonatate 100 mg capsule 100 mg PO BID PRN #7 caps 0 04/04/25 cetirizine 10 mg tablet 10 mg PO DAILY PRN #7 tabs 0 04/04/25 promethazine-DM 6.25 mg-15 mg/5 mL 5 ml PO Q6H PRN #11 8 mL 04/04/25 oral syrup Previous Rx's ?Medication ?Instructions ?Recorded melatonin 3 mg tablet 3 mg PO HS PRN sleep #30 tab s 01/04/21 benzonatate 100 mg capsule 100 mg PO BID PRN #7 caps 0 04/04/25 cetirizine 10 mg tablet 10 mg PO DAILY PRN #7 tabs 0 04/04/25 promethazine-DM 6.25 mg-15 mg/5 mL 5 ml PO Q6H PRN #11 8 mL 04/04/25 oral syrup Allergies Allergy/AdvReac Type Severity Reaction Status Date / Time kiwi Allergy Mild Tongue Verified 04/04/25 11:01 Tingling General Stated Complaint: RespSymp NAHUM: 3 Course Vital Signs Vital signs: Vital Signs Temperature 37.0 C 04/04/25 10:55 Pulse 77 04/04/25 10:55 Respiratory Rate 18 04/04/25 10:55 Blood Pressure 106/57 L 04/04/25 10:55 Pulse Oximetry 99 04/04/25 10:55 Temperature 37.0 C 04/04/25 10:55 Temperature Source Oral 04/04/25 10:55 Pulse 77 04/04/25 10:55 Respiratory Rate 18 04/04/25 10:55 Blood Pressure 106/57 L 04/04/25 10:55 Blood Pressure Position Sitting 04/04/25 10:55 Pulse Oximetry 99 04/04/25 10:55 Oxygen Delivery Method Room Air 04/04/25 10:55 Oxygen Flow Rate 0 04/04/25 10:55 PFSH All Active Problems (Updated 04/04/25 @ 11:15 by Jaskaran Adkins MD) Viral URI (Acute) Chest pain of uncertain etiology (Acute) Closed right ankle fracture (Acute 12/20/23) Left inguinal hernia (Acute) Non-recurrent unilateral inguinal hernia without obstruction or gangrene (Acute) Precordial catch syndrome (Acute) Depression with anxiety (Acute) Routine child health exam (Acute 11/20/12) Learning difficulty (Acute 11/20/12) Attention deficit hyperactivity disorder, combined type (Acute 11/20/12) Medical History (Updated 04/04/25 @ 11:15 by Jaskaran Adkins MD) Swollen testicle Depression Normal weight, pediatric, BMI 5th to 84th percentile for age (12/28/14) ADHD (attention deficit hyperactivity disorder) Vision problem WEARS GLASSES Surgical History Hx of inguinal hernia repair (~10/2023) left side Circumcision Family History Mother TMJ arthralgia Lumbar herniated disc Father Healthy adult on routine physical examination Grandfather Essential hypertension Hyperlipidemia Social History Smoking/Tobacco Use Status: Current every day Tobacco Type: cigarettes and e- cigarettes Smoking risk assessment performed?: Yes Alcohol Intake: never Drug use: Daily Substance use type: marijuana Housing: apartment Education Level: high school Details: Senior at Pets and animals: Yes (Dog at dad's house) Pets and animals: dog(s) Current gender identity: male What type of physical activity do you participate in: other Details: Baseball Seatbelt use: always Do you feel safe at home: Yes Do you feel safe in your relationship?: Yes
[2025-04-04 11:54] LABS: COVID-19 PCR Negative (Negative); RSV PCR Negative (Negative)
== END 2025-04-04 12:33 | disposition home or self-care (01) ==
PROVIDERS: Emergency Provider Emergency Medicine; PCP Nurse Practitioner Family
DX: J06.9 Acute upper respiratory infection, unspecified (principal); Z72.0 Tobacco use
CPT/HCPCS: 99283; 99284; 87637; 71046

== ENCOUNTER 2025-04-07 04:21 | Outpatient (CLI) | payer MEDICAID, SELFPAY ==
--- NOTE | 2025-04-07 | DI.US_ITS ---
Exam(s) US ABDOMEN EXAM: US ABDOMEN CLINICAL HISTORY: EPIGASTRIC BURNING SENSATION, R10.13 TECHNIQUE: Ultrasound of complete upper abdomen performed using standard protocol. COMPARISON: US US SCROTUM from 10/21/2024 FINDINGS: There is no ascites evident. LIVER: There are no hepatic lesions evident nor obvious dilatation of intrahepatic ducts. GALLBLADDER/BILIARY: There appear to be 2 tiny (2 mm) gallbladder polyps. No shadowing gallstones. No gallbladder wall edema nor pericholecystic fluid. The common hepatic duct isnot dilated, measuring 3-4mm at the level of deonna hepatis. PANCREAS: There is no evidence of pancreatic mass nor dilatation of the pancreatic duct. SPLEEN: The spleen is not enlarged and there are no intrasplenic lesions evident. KIDNEYS:Kidneys exhibit normal size with no evidence of solid mass, calculus, nor hydronephrosis. No cortical cysts evident. ABDOMINAL AORTA: There is no evidence of abdominal aortic aneurysm. IVC: Normal diameter where visualized. IMPRESSION: 1. There are 2 tiny polyps in the gallbladder. No shadowing gallstones seen and no evidence of acute cholecystitis nor dilatation of the biliary tree. 2. No other significant ultrasound findings in the upper abdomen. 3. There is no ascites. DATA REPOSITORY:
== END 2025-04-07 04:41 ==
LOC: DI 04:21
PROVIDERS: PCP Nurse Practitioner Family; Visit Provider Nurse Practitioner Family
DX: R10.13 Epigastric pain (principal); K82.4 Cholesterolosis of gallbladder
CPT/HCPCS: 76700

== ENCOUNTER 2025-04-07 10:32 | Outpatient (CLI) | payer MEDICAID, SELFPAY | END 2025-04-07 10:33 | disposition home or self-care (01) | PROVIDERS: PCP Nurse Practitioner Family; Visit Provider Nurse Practitioner Family | DX: R00.2 Palpitations (principal) | CPT/HCPCS: 93270 ==

== ENCOUNTER 2025-05-10 07:22 | Outpatient (CLI) | payer MEDICAID, SELFPAY ==
--- NOTE | 2025-05-10 08:25 | W.CARDEVENT ---
Date of service: 05/10/25 Time of Service: 08:25 Cardiac Event Recorder Referring Provider:: stephen Rodriguez Indications:: Palpitations Cardiac Event Note: This is a cardiac event monitor. Patient was monitored for 13 days and 2 hours Rhythm throughout was sinus with an average heart rate of 70. Minimum was 50, maximum 113 There were no significant ventricular dysrhythmias. There was no atrial fibrillation, no high-grade AV block, no pauses greater than 3 seconds. Symptoms were reported all of which correlated to sinus rhythm heart rates ranging from 52-92
== END 2025-05-10 07:23 | disposition home or self-care (01) ==
LOC: CARDOPNVT 07:22
PROVIDERS: PCP Nurse Practitioner Family; Referring Provider Nurse Practitioner Family; Visit Provider Internal Medicine Cardiovascular Disease
DX: R00.2 Palpitations (principal)